=== PATIENT | female | born 1975 | race Caucasian/White ===

== ENCOUNTER → 2017-01-17 | Outpatient (CLI) | payer OTHER ==
--- NOTE | 2017-01-17 15:35 | XR ---
EXAMINATION TYPE: XR thoracic spine 2V, XR lumbosacral spine min 4V, XR cervical spine limited DATE OF EXAM: 01/17/2017 CLINICAL HISTORY: Back pain after sneezing. TECHNIQUE: Frontal, lateral, and swimmer's view of thoracic spine are obtained. Frontal and lateral views of the lumbar spine were also obtained. Frontal, lateral, and open-mouth views of the cervical spine were obtained. COMPARISON: None. FINDINGS: Cervical spine: The cervical spine vertebral bodies maintain normal vertebral body heights and alignm ent. There is straightening of the usual cervical lordosis. Facets are also aligned. No prevertebral soft tissue swelling. Odontoid is intact. Visualized lung apices, ribs and clavicles appear unremarka ble. Thoracic spine: Minimal degenerative changes displayed as intervertebral disc space narrowing, endpla te sclerosis and small anterior osteophytes are seen of the upper thoracic spine. There is a slight l evoscoliotic curvature of the thoracic spine. Thoracic spine show satisfactory alignment without evid ence of acute fracture or dislocation. Vertebral body heights and disc space heights are preserved. Visualized ribs are unremarkable. Lumbar spine: There is a mildly rotatory dextroscoliotic curvature of the lumbar spine. There is sacr alization of the L5 vertebral body in incidental note of nonunion of the posterior elements of L5. No pars interarticularis defects are appreciated. The lumbar vertebral bodies maintain normal height an d alignment. Minimal degenerative changes are seen at L3-L4 and L4-L5 demonstrated as small anterior osteophytes and facet arthropathy. Transverse processes appear intact. Visualized bowel gas pattern i s nonobstructive. IMPRESSION: 1. No acute fracture or dislocation is seen in the cervical, thoracic, or lumbar spine. 2. Mild rotatory S-shaped scoliotic curvature of the thoracolumbar spine. 3. Straightening of the usual cervical lordosis that could relate to muscular spasm or patient positi oning. 4. Minimal multilevel degenerative change of the thoracic and lumbar spine.
== END | disposition home or self-care (01) ==
LOC: RADXRMAIN 14:38
PROVIDERS: ATTEND Internal Medicine
DX: M47.815 Spondylosis without myelopathy or radiculopathy, thoracolumbar region (principal); M41.85 Other forms of scoliosis, thoracolumbar region
CPT/HCPCS: 72040; 72070; 72110

== ENCOUNTER → 2019-02-22 | Outpatient (CLI) | payer OTHER ==
--- NOTE | 2019-02-22 14:35 | XR ---
EXAMINATION TYPE: XR cervical spine 5 views comp, XR thoracic spine 3 views XR lumbar spine 3V, DATE OF EXAM: 02/22/2019 COMPARISON: 01/17/2017 HISTORY: 44-year-old female with pain and leg weakness FINDINGS: Cervical spine: No predental space widening or prevertebral soft tissue swelling. Straightening of the normal cervica l lordosis. Alignment is maintained. Minimal endplate spondylosis C4-C5 mild uncovertebral joint arth ropathy mid to lower cervical spine. No significant bony neuroforaminal narrowing on either side. Nor mal odontoid view. Thoracic spine: Mild to moderate disc height loss upper third thoracic spine. Levoconvex curvature centered along the lower thoracic spine. 12 rib bearing thoracic vertebral bodies. All pedicles are visualized. Vertebr al body heights are maintained. Alignment is preserved. Lumbar spine: Dextroconvex curvature of the lumbar spine. Incidental posterior fusion defect of L5. Hypertrophic fa cet arthropathy lower lumbar spine. Seems to be a grade 1 cardiomegaly grade 2 anterolisthesis at L5- S1. Vertebral body heights are preserved. IMPRESSION: 1. Redemonstrated reverse S-shaped scoliosis of the thoracolumbar spine. 2. Similar straightening of the normal cervical lordosis which could be positional or due to muscle s pasm. 3. Mild to moderate degenerative disc disease upper third thoracic spine, mild uncovertebral joint ar thropathy mid to lower cervical spine, and hypertrophic facet arthropathy lower lumbar spine. 4. Grade 1, nearly grade 2 anterolisthesis at L5-S1 could be secondary to pars defects or could be on a degenerative basis. CT if more detailed assessment of the bony anatomy is desired.
== END | disposition home or self-care (01) ==
LOC: RADXRMAIN 12:42
PROVIDERS: ATTEND Internal Medicine
DX: M51.34 Other intervertebral disc degeneration, thoracic region (principal); M43.17 Spondylolisthesis, lumbosacral region; M47.812 Spondylosis without myelopathy or radiculopathy, cervical region; M41.85 Other forms of scoliosis, thoracolumbar region; M46.96 Unspecified inflammatory spondylopathy, lumbar region
CPT/HCPCS: 72050; 72070; 72100

== ENCOUNTER → 2019-03-06 | Outpatient (CLI) | payer OTHER ==
--- NOTE | 2019-03-07 10:24 | MM ---
Reason for exam: screening (asymptomatic). Last mammogram was performed 11 years and 8 months ago. History: Patient is postmenopausal, has history of endometrial cancer at age 22, and is nulliparous. Taking hormonal contraceptives for 15 years beginning at age 17. Physical Findings: A clinical breast exam by your physician is recommended on an annual basis and results should be correlated with mammographic findings. MG 3D Screening Mammo W/Cad Bilateral CC and MLO view(s) were taken. Prior study comparison: July 19, 2007, bilateral diagnostic digital mammog. The breast tissue is heterogeneously dense. This may lower the sensitivity of mammography. There is no discrete abnormality. No significant changes when compared with prior studies. ASSESSMENT: Negative, BI-RAD 1 RECOMMENDATION: Routine screening mammogram of both breasts in 1 year.
== END | disposition home or self-care (01) ==
LOC: RADMAMWWP 10:19
PROVIDERS: ATTEND Obstetrics & Gynecology
DX: Z12.31 Encounter for screening mammogram for malignant neoplasm of breast (principal)
CPT/HCPCS: 77063; 77067

== ENCOUNTER → 2022-04-26 | Outpatient (CLI) | payer OTHER ==
--- NOTE | 2022-04-26 11:55 | XR ---
EXAMINATION TYPE: XR soft tissue neck, XR cervical spine comp DATE OF EXAM: 04/26/2022 11:43 AM INDICATION: Patient age:Female; 47 years old; Reason for study: M54.2 cervical pain; PHH. COMPARISON: Cervical spine radiograph 02/22/2019. TECHNIQUE: The soft tissues of the neck were imaged in 2 views. The cervical spine is radiographed in frontal, bilateral oblique, lateral, and odontoid projections. FINDINGS: The prevertebral soft tissues are unremarkable. There is no evidence of mass effect or trac heal deviation. No acute osseous abnormality demonstrated. Straightening of the normal cervical lord osis. Alignment is maintained. Minimal multilevel disc space narrowing with endplate sclerosis and an terior asbestosis involving C4-C7. Odontoid is intact. No significant neural foraminal stenosis. No e vidence of subglottic narrowing. IMPRESSION: 1. No significant abnormality identified within the soft tissues of the neck. 2. No acute osseous abnormality. 3. Mild degenerative disc disease.
== END | disposition home or self-care (01) ==
LOC: RADXRMAIN 10:54
PROVIDERS: ATTEND Family Medicine
DX: M50.321 Other cervical disc degeneration at C4-C5 level (principal)
CPT/HCPCS: 70360; 72050

== ENCOUNTER 2023-04-26 13:29 | Observation (INO) | payer OTHER ==
--- NOTE | 2023-04-26 13:52 | ED ---
General Adult HPI - General Chief complaint: Arrhythmia/Palpitations Stated complaint: heart flutters Time Seen by Provider: 04/26/23 13:47 Source: patient, RN notes reviewed, old records reviewed Mode of arrival: ambulatory Limitations: no limitations - History of Present Illness Initial comments: 48-year-old female presents for evaluation of chest pain palpitation, possible arrhythmia. Patient was at the dentist office where she was undergoing a dental procedure with sedation. She felt dizzy with nausea after sedation and was thought to possibly be in an abnormal rhythm. Documentation from the dentist did indicate that she was in a flutter. The rhythm strip provided with the patient shows sinus rhythm. Symptoms resolved at this time. No prior cardiac history. - Related Data Allergies Allergy/AdvReac Type Severity Reaction Status Date / Time Penicillins Allergy Rash/Hives Verified 04/26/23 13:44 sulfamethoxazole Allergy Rash/Hives Verified 04/26/23 13:44 [From Bactrim] trimethoprim [From Bactrim] Allergy Rash/Hives Verified 04/26/23 13:44 Review of Systems ROS Statement: Those systems with pertinent positive or pertinent negative responses have been documented in the HPI. ROS Other: All systems not noted in ROS Statement are negative. Past Medical History Past Medical History: No Reported History History of Any Multi-Drug Resistant Organisms: None Reported Past Surgical History: Section, Orthopedic Surgery Past Psychological History: No Psychological Hx Reported Smoking Status: Current every day smoker Past Alcohol Use History: None Reported Past Drug Use History: None Reported General Exam Limitations: no limitations General appearance: alert, in no apparent distress Head exam: Present: atraumatic, normocephalic Eye exam: Present: normal appearance, PERRL ENT exam: Present: normal exam Neck exam: Present: normal inspection. Absent: tenderness, meningismus Respiratory exam: Present: normal lung sounds bilaterally. Absent: respiratory distress, wheezes Cardiovascular Exam: Present: regular rate, normal rhythm GI/Abdominal exam: Present: soft. Absent: distended, tenderness Extremities exam: Present: normal inspection, normal capillary refill Neurological exam: Present: alert, oriented X3 Psychiatric exam: Present: normal affect, normal mood Course Vital Signs 04/26/23 13:40 Temperature 97.7 F Pulse Rate 89 Respiratory 18 Rate Blood Pressure 133/82 O2 Sat by Pulse 98 Oximetry Medical Decision Making - Medical Decision Making Was pt. sent in by a medical professional or institution (JACQUELINE Ochoa, RN [facility], urgent care, hospital, or [facility]...) When possible be specific @ -No Did you speak to anyone other than the patient for history (EMS, parent, family, police, friend...)? What history was obtained from this source @ -No Did you review nursing and triage notes (agree or disagree)? Why? @ -I reviewed and agree with nursing and triage notes Were old charts reviewed (outside hosp., previous admission, EMS record, old EKG, old radiological studies, urgent care reports/EKG's, [facility] records)? Report findings @ -No old charts were reviewed Differential Diagnosis (chest pain, altered mental status, abdominal pain women, abdominal pain men, vaginal bleeding, weakness, fever, dyspnea, syncope, headache, dizziness, GI bleed, back pain, seizure, CVA, palpatations, mental health, musculoskeletal)? @ -Differential Palpitations Ventricular arrhythmias, atrial arrhythmias, myocardial infarction, anemia, thyrotoxicosis, electrolyte imbalance, hypokalemia, pulmonary embolism, pulmonary disease, drugs, alcohol, anxiety, stress.... This is not meant to be an all-inclusive list. EKG interpreted by me (3pts min.). @ -[Sinus rhythm rate of [address] segment depression, MO interval 120, QRS duration 89, QTc 400 X-rays interpreted by me (1pt min.). @ -Chest x-ray is negative for acute cardiopulmonary findings. CT interpreted by me (1pt min.). @ -None done U/S interpreted by me (1pt. min.). @ -None done What testing was considered but not performed or refused? (CT, X-rays, U/S, labs)? Why? @ -None What meds were considered but not given or refused? Why? @ -None Did you discuss the management of the patient with other professionals (professionals i.e. JACQUELINE Ochoa, RN [facility], lab, RT, psych nurse, transition social worker, performance solutions specialist, teacher, mechanical engineering officer, porter sample case)? Give summary @ -No Was smoking cessation discussed for >3mins.? @ -No Was critical care preformed (if so, how long)? @ -No Were there social determinants of health that impacted care today? How? (Homelessness, low income, unemployed, alcoholism, drug addiction, transportation, low edu. Level, literacy, decrease access to med. care, fdc, rehab)? @ -No Was there de-escalation of care discussed even if they declined (Discuss DNR or withdrawal of care, Hospice)? DNR status @ -No What co-morbidities impacted this encounter? (DM, HTN, Smoking, COPD, CAD, Cancer, CVA, ARF, Chemo, Hep., AIDS, mental health diagnosis, sleep apnea, morbid obesity)? @ -None Was patient admitted / discharged? Hospital course, mention meds given and route, prescriptions, significant lab abnormalities, going to OR and other pertinent info. @ -[48-year-old female with abnormal EKG, vomiting, palpitations and chest discomfort. Symptoms resolved at the time my evaluation. Her EKG does show significant ST segment depression with no old EKG for comparison. She is asymptomatic at the time my evaluation. She does not remember the events that she was under anesthesia at the time. Given this abnormal EKG with the symptoms that the patient was having she will be observed for telemetry, serial cardiac enzymes, echo, cardiology consultation. Case discussed with Dr. Lang who will admit. Undiagnosed new problem with uncertain prognosis? @ -No Drug Therapy requiring intensive monitoring for toxicity (Heparin, Nitro, Insulin, Cardizem)? @ -No Were any procedures done? @ -No Diagnosis/symptom? @Palpitation, abnormal EKG Acute, or Chronic, or Acute on Chronic? @ -[Acute Uncomplicated (without systemic symptoms) or Complicated (systemic symptoms)? @ -Default Side effects of treatment? @ -No Exacerbation, Progression, or Severe Exacerbation? @ -No Poses a threat to life or bodily function? How? (Chest pain, USA, NH, pneumonia, PE, COPD, DKA, ARF, appy, cholecystitis, CVA, Diverticulitis, Homicidal, Suicidal, threat to staff... and all critical care pts) @ -Yes, chest pain - Lab Data Result diagrams: 04/26/23 13:55 04/26/23 13:55 Lab Results 04/26/23 04/26/23 04/26/23 Range/Units 13:55 13:55 13:55 WBC 9.5 (3.8-10.6) k/uL RBC 4.75 (3.80-5.40) m/uL Hgb 14.2 (11.4-16.0) gm/dL Hct 43.6 (34.0-46.0) % MCV 91.8 (80.0-100.0) fL MCH 29.8 (25.0-35.0) pg MCHC 32.5 (31.0-37.0) g/dL RDW 12.3 (11.5-15.5) % Plt Count 236 (150-450) k/uL MPV 8.6 Neutrophils % 59 % Lymphocytes % 34 % Monocytes % 3 % Eosinophils % 1 % Basophils % 1 % Neutrophils # 5.5 (1.3-7.7) k/uL Lymphocytes # 3.2 (1.0-4.8) k/uL Monocytes # 0.3 (0-1.0) k/uL Eosinophils # 0.1 (0-0.7) k/uL Basophils # 0.1 (0-0.2) k/uL PT 10.7 (10.0-12.5) sec INR 1.0 (<1.2) APTT 24.2 (22.0-30.0) sec Sodium 140 (137-145) mmol/L Potassium 4.0 (3.5-5.1) mmol/L Chloride 108 H (98-107) mmol/L Carbon Dioxide 23 (22-30) mmol/L Anion Gap 9 mmol/L BUN 13 (7-17) mg/dL Creatinine 0.70 (0.52-1.04) mg/dL Est GFR (CKD-EPI)AfAm >90 (>60 ml/min/1.73 sqM) Est GFR (CKD-EPI)NonAf >90 (>60 ml/min/1.73 sqM) Glucose 100 H (74-99) mg/dL Calcium 9.7 (8.4-10.2) mg/dL Magnesium 1.8 (1.6-2.3) mg/dL Total Bilirubin 1.0 (0.2-1.3) mg/dL AST 25 (14-36) U/L ALT 19 (4-34) U/L Alkaline Phosphatase 76 (38-126) U/L Troponin I (0.000-0.034) ng/mL Total Protein 7.6 (6.3-8.2) g/dL Albumin 4.6 (3.5-5.0) g/dL 04/26/23 Range/Units 13:55 WBC (3.8-10.6) k/uL RBC (3.80-5.40) m/uL Hgb (11.4-16.0) gm/dL Hct (34.0-46.0) % MCV (80.0-100.0) fL MCH (25.0-35.0) pg MCHC (31.0-37.0) g/dL RDW (11.5-15.5) % Plt Count (150-450) k/uL MPV Neutrophils % % Lymphocytes % % Monocytes % % Eosinophils % % Basophils % % Neutrophils # (1.3-7.7) k/uL Lymphocytes # (1.0-4.8) k/uL Monocytes # (0-1.0) k/uL Eosinophils # (0-0.7) k/uL Basophils # (0-0.2) k/uL PT (10.0-12.5) sec INR (<1.2) APTT (22.0-30.0) sec Sodium (137-145) mmol/L Potassium (3.5-5.1) mmol/L Chloride (98-107) mmol/L Carbon Dioxide (22-30) mmol/L Anion Gap mmol/L BUN (7-17) mg/dL Creatinine (0.52-1.04) mg/dL Est GFR (CKD-EPI)AfAm (>60 ml/min/1.73 sqM) Est GFR (CKD-EPI)NonAf (>60 ml/min/1.73 sqM) Glucose (74-99) mg/dL Calcium (8.4-10.2) mg/dL Magnesium (1.6-2.3) mg/dL Total Bilirubin (0.2-1.3) mg/dL AST (14-36) U/L ALT (4-34) U/L Alkaline Phosphatase (38-126) U/L Troponin I <0.012 (0.000-0.034) ng/mL Total Protein (6.3-8.2) g/dL Albumin (3.5-5.0) g/dL Disposition Clinical Impression: Palpitations, Chest pain, Abnormal EKG Disposition: ADMITTED IP TO THIS HOSP Condition: Stable Is patient prescribed a controlled substance at d/c from ED?: No Referrals: Oren Osborn [Primary Care Provider] - 1-2 days Time of Disposition: 15:23
[2023-04-26 14:22] LABS: Basophils # (A) 0.1 k/uL (0-0.2); Basophils % (A) 1 %; Eosinophils # (A) 0.1 k/uL (0-0.7); Eosinophils % (A) 1 %; HCT 43.6 % (34.0-46.0); HGB 14.2 gm/dL (11.4-16.0); Lymphocytes # (A) 3.2 k/uL (1.0-4.8); Lymphocytes % (A) 34 %; MCH 29.8 pg (25.0-35.0); MCHC 32.5 g/dL (31.0-37.0); MCV 91.8 fL (80.0-100.0); Mean Platelet Volume 8.6; Monocytes # (A) 0.3 k/uL (0-1.0); Monocytes % (A) 3 %; Neutrophils # (A) 5.5 k/uL (1.3-7.7); Neutrophils % (A) 59 %; Platelet Count 236 k/uL (150-450); RBC 4.75 m/uL (3.80-5.40); RDW 12.3 % (11.5-15.5); WBC 9.5 k/uL (3.8-10.6)
--- NOTE | 2023-04-26 14:24 | XR ---
EXAMINATION TYPE: XR chest 2V DATE OF EXAM: 04/26/2023 COMPARISON: None INDICATION: Dysrhythmia TECHNIQUE: Frontal and lateral views of the chest are obtained. FINDINGS: The heart size is normal. The pulmonary vasculature is normal. The lungs are clear. IMPRESSION: 1. No acute pulmonary process.
[2023-04-26 14:29] LABS: Partial Thromboplastin Time 24.2 sec (22.0-30.0); Prothrombin Time 10.7 sec (10.0-12.5)
[2023-04-26 14:34] LABS: ALT 19 U/L (4-34); AST 25 U/L (14-36); African American GFR (CKD) >90 (>60 ml/min/1.73 sqM); Albumin 4.6 g/dL (3.5-5.0); Alkaline Phosphatase 76 U/L (38-126); Anion Gap 9 mmol/L; Blood Urea Nitrogen 13 mg/dL (7-17); Calcium 9.7 mg/dL (8.4-10.2); Carbon Dioxide 23 mmol/L (22-30); Chloride 108 mmol/L (98-107); Glucose 100 mg/dL (74-99); Magnesium 1.8 mg/dL (1.6-2.3); Non-African American GFR(CKD) >90 (>60 ml/min/1.73 sqM); Sodium 140 mmol/L (137-145); Total Protein 7.6 g/dL (6.3-8.2)
[2023-04-26] MEDS ORDERED: NALOXONE 0.4 MG/ML 1 ML VIAL IV PRN (15:20)
--- NOTE | 2023-04-26 18:02 | CA ---
Transthoracic Echo Report Name: Teresa Fried Age: 48 Gender: F : 1975 Exam Date: 04/26/2023 15:59 Exam Location: [facility] Ht (in): 70 Wt (lb): 130 Ordering Physician: Ren Bolton MD Attending/Referring Phys: Employment Trainer Claire Bird [facility] Procedure CPT: Indications: palp/cp Cardiac Hx: Technical Quality: Fair Contrast 1: Total Dose (mL): Contrast 2: Total Dose (mL): MEASUREMENTS (Male / Female) Normal Values 2D ECHO LV Diastolic Diameter PLAX 4.3 cm 4.2 - 5.9 / 3.9 - 5.3 cm LV Systolic Diameter PLAX 2.9 cm IVS Diastolic Thickness 0.7 cm 0.6 - 1.0 / 0.6 - 0.9 cm LVPW Diastolic Thickness 0.9 cm 0.6 - 1.0 / 0.6 - 0.9 cm LV Relative Wall Thickness 0.4 LVOT Diameter 2.0 cm Aortic Root Diameter 3.6 cm Ascending Aorta Diameter 3.2 cm M-MODE Aortic Root Diameter MM 2.6 cm LA Systolic Diameter MM 2.3 cm LA Ao Ratio MM 0.9 AV Cusp Separation MM 2.0 cm DOPPLER AV Peak Velocity 111.6 cm/s AV Peak Gradient 5.0 mmHg AV Mean Velocity 70.8 cm/s AV Mean Gradient 2.4 mmHg AV Velocity Time Integral 21.2 cm LVOT Peak Velocity 103.7 cm/s LVOT Peak Gradient 4.3 mmHg LVOT Velocity Time Integral 22.2 cm LVOT Stroke Volume 73.2 cm??? LVOT Stroke Volume Index 42.1 ml/m??? LVOT Cardiac Index 3237.8 cm???/min???m??? AV Area Cont Eq vti 3.4 cm??? AV Area Cont Eq pk 3.1 cm??? Mitral E Point Velocity 76.1 cm/s Mitral A Point Velocity 53.5 cm/s Mitral E to A Ratio 1.4 MV Deceleration Time 244.8 ms LV E' Lateral Velocity 13.2 cm/s Mitral E to LV E' Lateral Ratio 5.8 LV E' Septal Velocity 11.1 cm/s Mitral E to LV E' Septal Ratio 6.9 Right Atrial Pressure 3.0 mmHg FINDINGS Left Ventricle Left ventricular wall thickness normal. Left ventricular cavity size normal. Low normal left ventricular systolic function with no obvious regional wall motion abnormalities. Left ventricular ejection fraction is estimated at 50%. Right Ventricle Normal right ventricular size. Right Atrium Normal right atrial size. Left Atrium Normal left atrial size. Mitral Valve Mitral valve thickened. Trace to mild mitral regurgitation. Aortic Valve Trileaflet aortic valve. No aortic valve stenosis or regurgitation. Tricuspid Valve Structurally normal tricuspid valve. No tricuspid regurgitation. Pulmonic Valve Pulmonic valve not well visualized. Pericardium Minimal pericardial effusion (normal variant). Aorta Normal size aortic root and proximal ascending aorta. Severe aortic dilatation at the level of the sinuses of valsalva (root). CONCLUSIONS Low normal LV systolic function. The EF is at 50% Thickened/myxomatous anterior and posterior mitral leaflets with mild MR Overall technically difficult study Previewed by: Dr. Jer Wallace MD (Electronically Signed) Final Date: 26 April 2023 18:02
[2023-04-26] MEDS ORDERED: MAGNESIUM OXIDE 400 MG TAB PO SCH (21:45)
[2023-04-26] MEDS ORDERED: LATANOPROST 0.005% OPHTH DROPS 2.5 ML BTL BOTH EYES SCH (21:45)
--- NOTE | 2023-04-27 00:47 | P.HPIM ---
History of Present Illness H&P Date: 04/26/23 Chief Complaint: Dizziness Patient is a 48-year-old female without significant past medical history, currently smokes about 3-4 cigarettes per day presents to ER from dentists office with complaints of palpitations and dizziness. Patient is scheduled for angioplasty at her dentist office. She was given Versed and local anesthesia. Patient started having dizziness and palpitations and irregular rhythm/flutter was noted on the rhythm strip. She was monitored while in the office and she is back to regular sinus rhythm. Sent to ER for further cardiology evaluation. Patient could not recollect what happened completely. Patient also states that she had similar episode of palpitations and dizziness. No prior cardiac history. Denied any recent illnesses. No cough or sputum production. No shortness of breath. No headache or dizziness or lightheadedness. Laboratory data showed WBC 9.5 hemoglobin 14.2 and platelets 236. Sodium 140 potassium 4.0 chloride 108 bicarb is 23 BUN 13 and creatinine 0.7, magnesium 1.8 and blood sugar 100 Troponin 2 negative. Liver enzymes aren't elevated. Review of Systems Constitutional: Patient denies any fever or chills . No generalized weakness or weight loss. Abdomen: Patient denied nausea vomiting and diarrhea and abdominal pain. Cardiovascular: Patient denies any chest pain or short of breath no palpitations. Respiratory: patient denied any cough is from production. No shortness of breath Neurologic: Patient denied any numbness or tingling headache. Musculoskeletal: Patient denies any complaints of joint swelling or deformity. Skin: Negative Psychiatric: Negative Endocrine: No heat or cold intolerance. No recent weight gain. Genitourinary: No dysuria or hematuria. All other 14 point ROS negative except the above Past Medical History Past Medical History: No Reported History History of Any Multi-Drug Resistant Organisms: None Reported Past Surgical History: Section, Orthopedic Surgery Past Psychological History: No Psychological Hx Reported Smoking Status: Current every day smoker Past Alcohol Use History: None Reported Past Drug Use History: None Reported Medications and Allergies Home Medications Medication Instructions Recorded Confirmed Type Ascorbic Acid [Vitamin C] 500 mg PO HS 04/26/23 04/26/23 History Cholecalciferol (Vitamin D3) 75 mcg PO HS 04/26/23 04/26/23 History [Vitamin D3 (3000 Iu)] Latanoprost [Latanoprost 0.005%] 1 drop BOTH EYES HS 04/26/23 04/26/23 History Magnesium Oxide [Magnesium] 500 mg PO HS 04/26/23 04/26/23 History Multivitamins, Thera [Multivitamin 1 tab PO HS 04/26/23 04/26/23 History (formulary)] Allergies Allergy/AdvReac Type Severity Reaction Status Date / Time Penicillins Allergy Rash/Hives Verified 04/26/23 16:32 sulfamethoxazole Allergy Rash/Hives Verified 04/26/23 16:32 [From Bactrim] trimethoprim [From Bactrim] Allergy Rash/Hives Verified 04/26/23 16:32 milk AdvReac Nausea Verified 04/26/23 16:32 Physical Exam Vitals: Vital Signs Temp Pulse Pulse Resp BP Pulse Ox 04/26/23 19:25 75 18 118/85 98 04/26/23 15:31 84 18 107/77 100 04/26/23 15:23 90 04/26/23 13:40 97.7 F 89 18 133/82 98 Intake and Output 04/26/23 04/26/23 04/26/23 06:59 14:59 22:59 Other: Weight 58.967 kg PHYSICAL EXAMINATION: Patient is lying in the bed comfortably, no acute distress, awake alert and oriented.. HEENT: Normocephalic. Neck is supple. Pupils reactive. Nostrils clear. Oral cavity is moist. Neck reveals no JVD, carotid bruits, or thyromegaly. CHEST EXAMINATION: Trachea is central. Symmetrical expansion. Lung garcia clear to auscultation and percussion. CARDIAC: Normal S1, S2 with no gallops. No murmurs ABDOMEN: Soft. Bowel sounds normal. No organomegaly. No abdominal bruits. Extremities: reveal no edema. No clubbing or cyanosis Neurologically awake, alert, oriented x3 with well-coordinated movements. No focal deficits noted Skin: No rash or skin lesions. Psychiatric: Coperative. Nonsuicidal Musculoskeletal: No joint swelling or deformity. Normal range of motion. Results CBC & Chem 7: 04/26/23 13:55 04/26/23 13:55 Labs: Abnormal Lab Results - Last 24 Hours (Table) 04/26/23 Range/Units 13:55 Chloride 108 H (98-107) mmol/L Glucose 100 H (74-99) mg/dL Thrombosis Risk Factor Assmnt - DVT/VTE Prophylaxis DVT/VTE Prophylaxis: Mechanical Prophylaxis ordered
[2023-04-27 09:55] VITALS: RESP 18
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
[2023-04-27] MEDS ORDERED: ALPRAZolam 0.25 MG TAB PO STA (11:01)
[2023-04-27 11:33] LABS: BUN/Creat Ratio 13.78 Ratio (12.00-20.00); Blood Urea Nitrogen 12.4 mg/dL (9.0-27.0); Calcium 9.4 mg/dL (8.7-10.3); Carbon Dioxide 21.9 mmol/L (21.6-31.8); Chloride 107 mmol/L (96-109); Glucose 92 mg/dL (70-110); Potassium 4.5 mmol/L (3.5-5.5); Sodium 141 mmol/L (135-145)
[2023-04-27 14:57] VITALS: BP 109/84; PULSE 87; TEMP 98.1; BMI 18.6
--- NOTE | 2023-04-28 10:34 | CA ---
Stress Echo Report Teresa Fried Age: 48 Gender: F : 1975 Exam Date: 04/27/2023 12:42 Exam Location: [facility] Ht (in): 70 Wt (lb): 130 Ordering Physician: Rosemarie French Referring Physician: [id number] Hydraulic Tester: ET Technologist Procedure CPT: Indication: CP ICD-9 Codes: Rhythm: Patient History: CHEST PAIN, DIFFICULTY IN BREATHING, PALPITATIONS, NUMBNESS IN FACE/NECK, FAMILY HX OF HEART DISEASE, CURRENT SMOKER Cardiac Medications: Medications in past 24 hours: Contrast: N/A Stress Results Protocol: Curly Total dose(mL): Exercise Duration (min:sec): 9:[address] Depression (mm): Angina Score: Johnson Score: METS: 10.3 Resting HR: 114 Resting BP: 99 / 45 Peak HR: 170 Peak BP: 147 / 71 Max Predicted HR: 173 98 % Max Predicted HR Target HR: 147 Double Product: 52879 Stress Summary: BP Response: Reason for Termination: MAX EXERTION/TARGET HR Cardiac Symptoms: NO SYMPTOMS ECG Analysis Resting ECG: Stress ECG: Arrhythmia: Echo Analysis Resting Echo: Peak Echo Analysis: MEASUREMENTS (Male/Female) Normal Values CONCLUSIONS Excellent exercise tolerance Mild EKG changes noted on the recovery Abnormal echocardiogram in response to exercise with septal hypokinesia noted Dr. Jer Wallace MD (Electronically Signed) Final Date: 28 April 2023 10:33
--- NOTE | 2023-04-28 10:51 | P.PN ---
Progress Note - Text Progress Note Date: 04/28/23 Patient was contacted via phone and reviewed abnormal stress test results with the patient. Recommended that [facility] contact [facility] and set up an appointment as soon as possible with Dr. Wallace. [facility] office was also notified the patient would be calling for an appointment.
== END 2023-04-27 20:21 | disposition home or self-care (01) ==
LOC: EC 13:29 → 6NMEDSUR 15:21
PROVIDERS: ADMIT Internal Medicine; ATTEND Internal Medicine
DX: R07.89 Other chest pain (principal); I48.92 Unspecified atrial flutter; R94.31 Abnormal electrocardiogram [ECG] [EKG]; F17.210 Nicotine dependence, cigarettes, uncomplicated; Z88.0 Allergy status to penicillin; Z88.2 Allergy status to sulfonamides
CPT/HCPCS: 99285; 36415; 93005; 93306; 93270; 93351; 80053; 80048; 84443; 83735; 84484; 85025; 85610; 85730; 71046; G0378 ×2

== ENCOUNTER → 2024-10-17 | Outpatient (CLI) | payer OTHER ==
--- NOTE | 2024-10-17 13:08 | MM ---
Reason for Exam: Clinical finding. Last mammogram was performed 2 year(s) and 5 month(s) ago. Patient History: Menarche at age 17. Postmenopausal. Endometrial cancer, age 22. Hormonal Contraceptives, starting at age 17 for 15 years. Risk Values: Yanci 5 year model risk: 0.6%. NCI Lifetime model risk: 6.1%. Tissue Density: The breasts are heterogeneously dense, which may obscure small masses. Findings: Analyzed By CAD. Benign calcifications noted. There is a nodular density far upper outer left breast near the axilla which was present since 2019 and likely reflects a lymph node. Ultrasound is recommended. Overall Assessment: Incomplete: need additional imaging evaluation, BI-RAD 0 Management: Diagnostic Breast Ultrasound of the left breast. . Results were given to the patient verbally at the time of exam. Patient should continue monthly self-breast exams. A clinical breast exam by your physician is recommended on an annual basis. This exam should not preclude additional follow-up of suspicious palpable abnormalities. Note on Yanci scores and lifetime risk: 1. A Yanci score greater than 3% is considered moderate risk. If this is the case, consider specialist referral to assess eligibility for a risk reducing agent. 2. If overall lifetime risk for the development of breast cancer is 20% or higher, the patient may qualify for future screening with alternating mammogram and breast MRI. [facility], , 10/17/2024 1:05 PM. Electronically signed and approved by: Edgar Mcdonald M.D. Radiologis
--- NOTE | 2024-10-17 13:20 | USB ---
Reason for Exam: Clinical finding. Patient History: Menarche at age 17. Postmenopausal. Endometrial cancer, age 22. Hormonal Contraceptives, starting at age 17 for 15 years. Risk Values: Yanci 5 year model risk: 0.6%. NCI Lifetime model risk: 6.1%. Technique: Method: Targeted. Prior Study Comparison: 07/19/2007 Bilateral Diagnostic Mammogram, [facility]. 03/06/2019 Bilateral Screening Mammogram, [facility]. 05/11/2022 Bilateral MG 3D screening mammo w/cad, [facility]. Findings: The area of palpable concern of the left breast, the axilla of the left breast and the retroareolar of the left breast were scanned. Normal-appearing and stable lymph node is seen adjacent concern left axis [id number]. Concerning solid masses seen. Correlation advised. Overall Assessment: Benign, BI-RAD 2 Management: Screening Mammogram of both breasts in 1 year. A clinical breast exam by your physician is recommended on an annual basis and results should be correlated with mammographic findings. This exam should not preclude additional follow-up of suspicious palpable abnormalities. Results were given to the patient verbally at the time of exam. [facility], , 10/17/2024 1:17 PM. Electronically signed and approved by: Edgar Mcdonald M.D. Radiologis
== END | disposition home or self-care (01) ==
LOC: RADMAMWWP 12:42
PROVIDERS: ATTEND Internal Medicine
DX: N63.21 Unspecified lump in the left breast, upper outer quadrant (principal); R92.333 Mammographic heterogeneous density, bilateral breasts; R92.1 Mammographic calcification found on diagnostic imaging of breast; Z78.0 Asymptomatic menopausal state; Z92.0 Personal history of contraception
CPT/HCPCS: 77066; 76642; G0279; 77062